=== PATIENT | female | born 1970 | race Caucasian/White ===

== ENCOUNTER 2019-05-28 10:26 | Emergency (ER) | payer OTHER ==
[~2019-05-28] VITALS: Ht 165.1 cm; Wt 106.4 kg
[2019-05-28 11:03] LABS: BASO % 0.9 % (0.0-1.0); EOS # 0.1 10^3/uL (0.0-0.5); EOS % 2.5 % (0.0-3.0); HEMATOCRIT 41.1 % (36.0-47.0); HEMOGLOBIN 13.6 g/dl (12.0-15.5); LYMPH # 1.3 10^3/uL (1.5-5.0); LYMPH % 29.2 % (24.0-44.0); MEAN CORPUSCULAR HEMOGLOBIN 28.8 pg (27.0-33.0); MEAN CORPUSCULAR HGB CONC 33.1 g/dl (32.0-36.5); MEAN CORPUSCULAR VOLUME 87.1 fl (80.0-96.0); MONO # 0.4 10^3/uL (0.0-0.8); MONO % 9.3 % (0.0-5.0); NEUTROPHILS # 2.6 10^3/uL (1.5-8.5); NEUTROPHILS % 58.1 % (36.0-66.0); PLATELET COUNT, AUTOMATED 218 10^3/uL (150-450); RED BLOOD COUNT 4.72 10^6/uL (4.00-5.40); WHITE BLOOD COUNT 4.4 10^3/uL (4.0-10.0)
--- NOTE | 2019-05-28 11:07 | REP ---
Portable chest, 10:50 a.m., single AP view with the patient semi upright: There are no comparisons. The lung aleman are clear. The cardiac size is normal. The eliceo, mediastinum, and skeletal structures are unremarkable. Impression: Negative portable chest. Electronically Signed by Socrates Faust MD 05/28/2019 10:58 A
[2019-05-28] MEDS ORDERED: IBUP200C33 PO (11:08)
[2019-05-28] MEDS ORDERED: AUBA14TA (11:08)
[2019-05-28] MEDS ORDERED: ESCI20TA (11:08)
[2019-05-28] MEDS ORDERED: XARE20TA (11:08)
[2019-05-28 11:14] LABS: INR 1.48; PROTHROMBIN TIME 17.7 SECONDS (11.8-14.0)
[2019-05-28 11:15] LABS: PARTIAL THROMBOPLASTIN TIME 32.2 SECONDS (25.0-38.4)
[2019-05-28 11:43] LABS: BLOOD UREA NITROGEN 14 MG/DL (7-18); CALCIUM LEVEL 8.4 MG/DL (8.5-10.1); CARBON DIOXIDE LEVEL 29 MEQ/L (21-32); CHLORIDE LEVEL 107 MEQ/L (98-107); CK-MB VALUE MASS 3.5 NG/ML (<3.6); CPK CREATINE PHOSPHOKINASE 166 U/L (26-192); CREATININE FOR GFR 0.75 MG/DL (0.55-1.30); FREE T4 0.75 NG/DL (0.76-1.46); GLOMERULAR FILTRATION RATE > 60.0 (>51); GLUCOSE, FASTING 91 MG/DL (70-100); MB/CK RELATIVE INDEX 2.11 (< OR =4); POTASSIUM SERUM 3.9 MEQ/L (3.5-5.1); SODIUM LEVEL 139 MEQ/L (136-145); TROPONIN I < 0.02 NG/ML (< 0.10)
[2019-05-28] MEDS ORDERED: ISOVUE-370 76% 100ML VIAL (Q9967) As Ordered ONE (11:45)
--- NOTE | 2019-05-28 12:08 | REP ---
CT of the chest with IV contrast, CT pulmonary angiography: The patient has a history of pulmonary embolus. Comparison is the portable plain film study of the chest earlier today. There are no emboli in the pulmonary trunk or central pulmonary arteries. There are no emboli in the pulmonary lobe or segment branches. There are no infiltrates or pleural effusions. There are no masses or nodules. There is no mediastinal, hilar or axillary adenopathy. Thoracic aorta is unremarkable. Cardiac size is normal. There is no pericardial effusion. The visualized upper abdominal contents are unremarkable. Impression: There are no pulmonary emboli. Otherwise, negative CT study of the chest. Electronically Signed by Socrates Faust MD 05/28/2019 12:00 P
[2019-05-28 12:20] VITALS: BP 109/67
--- NOTE | 2019-05-29 20:45 | ECGEPIP ---
[facility] - ED Test Date: 2019-05-28 Pat Name: TOMAS BRUNSON Department: Room: - Gender: Female [employer]: : [id number] Requested By: GONZALO Velásquez Order Number: [id number] Reading MD: Jaqueline Gentile Measurements Intervals [place] Rate: 73 P: 56 MO: 123 QRS: -7 QRSD: 101 T: 21 QT: 415 QTc: 460 Interpretive Statements SINUS RHYTHM PRWP NO PRIOR Electronically Signed on 05-29-2019 20:45:31 EST by Jaqueline Gentile
== END 2019-05-28 12:22 | disposition home or self-care (01) ==
LOC: M ED 10:26
DX: R07.89 Other chest pain (principal); R06.02 Shortness of breath; G35 Multiple sclerosis; Z88.0 Allergy status to penicillin; Z79.01 Long term (current) use of anticoagulants
CPT/HCPCS: 36415; 71045; 71275; 80048; 82550; 82553; 84439; 84443; 84484; 85025; 85610; 85730; 93005; 93041; 94760; 99284; Q9967